=== PATIENT | male | born 1945 | race Caucasian/White ===

== ENCOUNTER → 2018-01-16 | Outpatient (CLI) | payer MEDICARE, OTHER ==
[~2018-01-16] MED LIST: ASPIRIN325 PO; LOPRESSOR25 PO; METOPROLOL SUCC25 M1; ZESTORETIC 20-1 EAC3 PO
== END ==
LOC: M.ULTRA 10:30
DX: I10 Essential (primary) hypertension (principal); N28.1 Cyst of kidney, acquired

== ENCOUNTER → 2021-02-28 | Outpatient (CLI) | payer OTHER ==
--- NOTE | 2021-02-28 14:36 | 2DMMODE ---
[place] [address] 2 D/M-MODE ECHOCARDIOGRAM Name: RODERICK VILLAGRAN Room: [facility]#: [id number] Admission: 02/28/21 Attend Phys: Sven Doe Discharge: Date of : 49 Date of Service: 02/28/21 1436 Report #: [id number] THIS REPORT FOR: cc: Physician not on staff Physician not on staff Malvin Seaman MD [facility] ~ APPROVED REPORT Study performed: 02/28/2021 13:23:17 EXAM: Comprehensive 2D, Doppler, and color-flow Echocardiogram Patient Location: Out-Patient BSA: 2.21 HR: 56 bpm Indications CAD 2D Dimensions IVSd: 10.65 (7-11mm) LVOT Diam: 22.15 (18-24mm) LVDd: 43.34 mm PWd: 12.24 (7-11mm) Ascending Ao: 34.00 (22-36mm) LVDs: 21.33 (25-40mm) Aortic Root: 32.26 mm Volumes Left Atrial Volume (Systole) LA ESV Index: 34.30 mL/m2 Aortic Valve AoV Peak José Luis.: 1.27 m/s AO Peak Gr.: 6.40 mmHg LVOT Max P.21 mmHg AO Mean Gr.: 3.35 mmHg LVOT Mean P.16 mmHg LVOT Max V: 0.74 m/s AO V2 VTI: 27.38 cm LVOT Mean V: 0.50 m/s [place] (VTI): 2.70 cm2 LVOT V1 VTI: 19.20 cm Mitral Valve E/A Ratio: 0.71 MV Decel. Time: 360.52 ms MV E Max José Luis.: 0.44 m/s MV PHT: 104.55 [place] [address] 2 D/M-MODE ECHOCARDIOGRAM Name: RODERICK VILLAGRAN Room: [facility]#: [id number] Admission: 02/28/21 Attend Phys: Sven Doe Discharge: Date of : 49 Date of Service: 02/28/21 1436 Report #: [id number] MVA (PHT): 2.10 cm2 TDI E/Lateral E': 4.40 E/Medial E': 4.89 Medial E' José Luis.: 0.09 m/s Lateral E' José Luis.: 0.10 m/s Pulmonary Valve PV Peak José Luis.: 0.75 m/s PV Peak Gr.: 2.22 mmHg Left Ventricle The left ventricle is normal size. There is normal LV segmental wall motion. Mild concentric left ventricular hypertrophy. Left ventricular systolic function is normal. LVEF is 55-60%. Grade I - abnormal relaxation pattern. Right Ventricle The right ventricle is normal size. The right ventricular systolic function is normal. Atria Left atrium is mildly dilated. Right atrium is mildly dilated. Aortic Valve Mild aortic valve sclerosis. Trace aortic regurgitation. There is no aortic valvular stenosis. Mitral Valve The mitral valve is normal in structure. Trace mitral regurgitation. No evidence of mitral valve stenosis. Tricuspid Valve The tricuspid valve is normal in structure. Unable to assess PA pressure. Trace tricuspid regurgitation. Pulmonic Valve The pulmonary valve is normal in structure. Trace pulmonic regurgitation. Great Vessels The aortic root is normal in size. IVC is normal in size and collapses >50% with inspiration. Pericardium There is [place] [address] 2 D/M-MODE ECHOCARDIOGRAM Name: TYSHAWNRODERICK E Room: [facility]#: [id number] Admission: 02/28/21 Attend Phys: Sven Doe Discharge: Date of : 49 Date of Service: 02/28/21 1436 Report #: [id number] <Conclusion> The left ventricle is normal size. Mild concentric left ventricular hypertrophy. Left ventricular systolic function is normal. LVEF is 55-60%. Grade I - abnormal relaxation pattern. There is normal LV segmental wall motion. Left atrium is mildly dilated. Right atrium is mildly dilated. Mild aortic valve sclerosis. Trace aortic regurgitation. Trace mitral regurgitation. Trace tricuspid regurgitation. IVC is normal in size and collapses >50% with inspiration. <ELECTRONICALLY SIGNED> By: Malvin Seaman MD, FACC 02/28/21 1436 1436 1436 Malvin Seaman MD, FACC /INF
== END ==
LOC: M.CRD 12:53
PROVIDERS: ATTEND Chiropractor
DX: I35.1 Nonrheumatic aortic (valve) insufficiency (principal); I25.10 Atherosclerotic heart disease of native coronary artery without angina pectoris